=== PATIENT | male | born 1955 | race African-American/Black ===

== ENCOUNTER 2019-02-22 07:54 | Inpatient (IN) | payer MEDICARE, MEDICAID | END 2019-02-23 14:50 | disposition home or self-care (01) | LOC: ER 07:54 → TELE 10:14 → TELE-WESTW 15:25 | DX: R10.9 Unspecified abdominal pain (principal); K57.30 Diverticulosis of large intestine without perforation or abscess without bleeding; E11.65 Type 2 diabetes mellitus with hyperglycemia; Z83.3 Family history of diabetes mellitus; J44.9 Chronic obstructive pulmonary disease, unspecified; N28.1 Cyst of kidney, acquired; M47.9 Spondylosis, unspecified; K46.9 Unspecified abdominal hernia without obstruction or gangrene ==